=== PATIENT | female | born 1970 | race Caucasian/White ===

== ENCOUNTER 2025-03-03 16:15 | Emergency (ER) | payer BC, SELFPAY ==
--- OUTSIDE RECORDS SUMMARY | 2025-03-03 16:17 | XMS_ITS | Clinical Summary ---
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 90 capsule. 3 03/04/2021 Active Active Problems Problem Noted Date Diagnosed Date Seasonal affective disorder 03/04/2021 ASCUS of cervix with negative high risk HPV 08/2019 Overview (02/27/2020): 02/14/2020 ASCUS/HPV negative. PLAN: Repeat Pap/HPV testing in 3 years (DUE 02/2023) PHARYNGITIS, ACUTE 07/26/2002 BACK ACHE 07/26/2002 Immunizations Immunization Administration Dates Next Due COVID-19 vaccine (Moderna 100mcg/0.5mL) PF, MDV 08/20/2020,07/23/2020 Influenza, IIV4 03/04/2021,02/14/2020 Tdap 02/14/2020,02/10/2007 Zoster (Shingrix-RZV, recombinant) 10/03/2020, Family History Medical History Relation Name Comments Hypertrophic cardiomyopathy Daughter Cancer Maternal Grandmother bone ca Diabetes Maternal Grandmother Diabetes Mother Cancer Paternal Grandfather lung Cancer-breast No Family History Cancer-ovarian No Family History Relation Name Status Comments Daughter Other Maternal Grandmother Mother Paternal Grandfather Social History Tobacco Use Types Packs/Day Years Used Date Smoking Tobacco: Never Smokeless Tobacco: Never Tobacco Cessation:Counseling Given: Yes Alcohol Use Standard Drinks/Week Comments No 0 (1 standard drink = 0.6 oz pur e alcohol) PHQ-2 Answer Date Recorded PHQ-2 TOTAL SCORE 0 03/04/2021 Social Connections Answer Date Recorded Frequency of Communication with Friends and Fami ly Not on file 06/13/2021 Financial Resource Strain Answer Date R ecorded Difficulty of Paying Living Expenses Not on file 06/13/2021 Difficulty of Paying Living Expenses Not on file 06/13/2021 Comments No Sex and Gender Information Value Date Recorded Sex Assigned at Not on file 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 Gender Identity Not on file Sexual Orientation Not on file Obstetrics History Last Filed Vital Signs Vital Sign Reading Time Taken Comments Blood Pressure 110/60 11/11/2021 2:29 PM CDT Pulse 76 11/11/2021 2:29 PM CDT Temperature 36.7 C (98.1 F) 07/15/2004 9:38 AM HEALTH CARE MARKETING MANAGER Respiratory Rate - - Oxygen Saturation 97% 03/04/2021 2:08 PM CDT Inhaled Oxygen Concentration - - Weight 69.1 kg (152 lb 6.4 oz) 03/04/2021 2:08 P M CDT Height 152.6 cm (5' 0.08) 03/04/2021 2:08 PM CD T Body Mass Index 29.69 03/04/2021 2:08 PM CDT Plan of Treatment Health Maintenance Due Date Last Done Comments HIV for age 15-65 1984 Hepatitis C screening for age 18-79 11/29/1987 Hepatitis B series for 19+ ( 1 of 3 - 19+ 3-dose series) 1988 Pneumococcal series for age 50+ (1 of 1 - PCV) 11/29/2019 Mammogram for age 45-75 02/18/2022 02/18/2021, 02/10 BMI (ht and wt on same day) for age 18+ 03/04/2022 03/04/2021, 02/14/2020 Depression screening for age 12+ 03/04/2022 03/04/20 21, 02/14/2020 Pap test for age 21-65 02/13/2023 02/14/2020, 2019 COVID-19 vaccine series ( season) 2025 06/22/2021, 08/20/2020, 07/23/2020 Influenza Vaccine (#1) 2025 03/04/2021, 2019 Lipids for age 45-75 02/13/2025 02/14/2020 Tetanus booster 02/13/2030 02/14/2020, 02/10/2007 Colonoscopy through age 75 11/19/203011/19, 11/19/2020, 11/19/2020 RSV vaccine for adults or pr egnancy (1 - 1-dose 75+ series) 2044 Zoster (shingles) series for age 50+ Completed 09/12, 02/14/2020 Procedures Procedure Name Priority Date/Time Associated Diagnosis Comments XR MAMMO ARMIDA BILAT SCREEN Routine 02/18/2021 1:53 PM CDT Visit for screening mammogram COLONOSCOPY SCREENING Routine 11/19/2020 8:41 AM CDT Screening for colon cancer LIPID PANEL W REFLEX MEASURED LDL Routine 02/14/2020 2:42 PM CDT Screening for lipid disorders LOCKSMITH HELPER THIN PREP PAP SCREEN IMAGED Routine 02/14/2020 2:24 PM CDT Screening for cervical cancer from Last 3 Months or Most Recently Relevant to Health Maintenance Results * XR MAMMO ARMIDA BILAT SCREEN (02/18/2021 1:53 PM CDT) Anatomical Region Laterality Modality BREASTS, Breast Left, Breast Right Bilateral Mammography Impressions 02/20/2021 3:42 PM CDT There is no radiographic evidence for malignancy. Recommend annual mammograms. MAMMOGRAM ASSESSMENT: ACR 1 Negative PATIENTS: You will also receive a letter with your examination results in an easy to read format. If you have questions about your results, please contact your referring provider. Narrative 02/20/2021 3:42 PM CDT For Patients: As a result of the Cures Act, medical imaging exams and procedure reports are released immediately into your electronic medical record. You may view this report before your referring provider. If you have questions, please contact your health care provider. XR MAMMO ARMIDA BILAT SCREEN [[id number]] CLINICAL HISTORY: This is an asymptomatic 50 y.o. patient. INDICATION FOR EXAM: Mammogram Screening. TECHNIQUE: CC & MLO views were obtained. This study was evaluated with the assistance of Computer-Aided Detection. Breast Tomosynthesis was used in interpretation. COMPARISON FILM: Yes 02/11/20 [facility] FINDINGS: The breasts have scattered areas of fibroglandular density. There are no dominant masses, suspicious micro calcifications or areas of architectural distortion. us Cindy Jorge MD MAMMO Final Result * COLONOSCOPY (11/19/2020 8:37 AM CDT) 11/19/2020 8:37 AM CDT Narrative Transcriptions Moises Mitchell MD - 11/19/2020 9:39 AM CDT Patient Name: Dorys Jo Procedure Date: 11/19/2020 Gender: Female Date of : 1970 Admit Type: Outpatient Procedure: Colonoscopy Proceduralist: Moises Mitchell MD , Doris Flores RN(Nurse) Referring MD: Cindy Jorge Indications/Pre-Op Diagnosis: Screening for colorectal malignant neoplasm, This is the patient's first colonoscopy Medications: Fentanyl 100 micrograms IV, Midazolam 4 mgIV, The level of sedation administered wasmoderate Procedure Description: The patient had risks, benefits and alternatives explained to andgave informed consent. The patient had a stable cardiopulmonary status and judged an adequate candidate for conscious sedation. The [id number]-[id number] was passed through the anus and advanced tothe cecum, identified by appendiceal orifice and ileocecal valve. The colonoscopy was performed without difficulty. The patient toleratedthe procedure well. The quality of the bowel preparation was good. The ileocecal valve, appendiceal orifice, and rectum were photographed. Complications: No immediate complications. Estimated Blood Loss & Specimen: Estimated blood loss: none. Specimen collected - Yes and sent to Laboratory Findings: The perianal and digital rectal examinations were normal. A 2 mm polyp was found in the descending colon. The polyp wassessile. The polyp was removed with a cold biopsy forceps. Resection and retrieval were complete. The exam was otherwise without abnormality on direct and retroflexion views. Impressions/Post-Op Diagnosis: - One 2 mm polyp in the descending colon, removed with a cold biopsy forceps. Resected and retrieved. - The examination was otherwise normal on direct and retroflexionviews. Recommendation: - Patient has a contact number available for emergencies. The signsand symptoms of potential delayed complications were discussed with the patient. Return to normal activities tomorrow. Written discharge instructions were provided to the patient. - Resume previous diet. - Continue present medications. - Await pathology results. - Repeat colonoscopy is recommended. The colonoscopy date will be determined after pathology results from today's exam become available for review. Moderate Sedation: Moderate (conscious) sedation was administered by the endoscopy nurse and supervised by the endoscopist. The following parameters were monitored: oxygen saturation, heart rate, respiratory rate, blood pressure, adequacy of pulmonary ventilation and reponse to care. Please refer to the patient's medical record flowsheets and nursing notes for moderate sedation details. Total physician intraservice time was 24 minutes. Moises Mitchell MD 11/19/2020 9:39:22 AM This report has been signed electronically. Note Initiated On: 11/19/2020 8:37 AM Procedure Code(s): --- Professional --- 64733, Colonoscopy, flexible; with biopsy, single or multiple Diagnosis Code(s): --- Professional --- Z12.11, Encounter for screening formalignant neoplasm of colon K63.5, Polyp of colon CPT copyright 2020 [employer]. All rights reserved. The codes documented in this report are preliminary and upon canal boat operator reviewmay be revised to meet current compliance requirements. Scope In: 9:13:51 AM Scope Withdrawal Time 0 hours 8 minutes 2 seconds Scope Out: 9:36:11 AM us Moises Mitchell MD PROCEDURE ORD Final Res ult * LIPID PANEL W REFLEX MEASURED LDL [[id number]] (02/14/2020 2:42 PM CDT) CHOLESTEROL,TOTAL 183 100 - 199 mg/dL 02/14/2020 8:47 PM CDT [facility] TRIGLYCERIDES 124 <150 mg/dL 02/14/2020 8:47 PM CDT [facility] HDL CHOLESTEROL 47 >40 mg/dL 0 8:47 PM CDT [facility] NON-HDL CHOLESTEROL 136 <145 mg/dl 02/14/2020 8:47 PM CDT [facility] CHOL/HDL RATIO 3.89 <4.50 02/14/2020 8:47 PM CDT [facility] LDL CHOLESTEROL 111 <=130 mg/dL 02/14/2020 8:47 PM CDT [facility] PROVIDER ORDERED STATUS RANDOM 02/14/2020 8:47 PM CDT [facility] Blood BLOOD SPECIMEN / Unknown Venipuncture / Unknown 02/14/2020 2:42 PM CDT 02/14/2020 2:42 PM CDT us Cindy Jorge MD CHEMISTRY Final Result [facility] [address] [place] [address], [place] * (ABNORMAL) LOCKSMITH HELPER THIN PREP PAP SCREEN IMAGED [[id number]] (02/14/2020 2:24 PM CDT) Case Report Gynecologic Cytology Report Case: [id number] Authorizing Provider: Cindy Jorge MD Collected: 02/14/2020 1424 Ordering Location: [facility] Received: 02/14/2020 1550 Clinic First Screen: Bailee Frank Pathologist: Kathleen Wilkes MD Specimen: LOCKSMITH HELPER ThinPrep Vial Screening, Cervical 02/27/2020 9:04 AM CDT [facility] INTERPRETATION/ RESULT ATYPICAL SQUAMOUS CELLS OF UNDETERMINED SIGNIFICANCE (ASCUS)(A) (none) 02/27/2020 9:04 AM CDT [facility] at 0904 CDT SPECIMEN ADEQUACY Satisfactory for evaluation Endocervical component present 02/27/2020 9:04 AM CDT [facility] HPV REQUEST HPV and PAP 02/27/2020 9:04 AM CDT [facility] Date of LMP 01/15/20 02/27/2020 9:04 AM CDT [facility] Last Pap Date unknown 02/27/2020 9:04 AM CDT [facility] Last Pap Result NIL 0 9:04 AM CDT [facility] Abnormal Pap or [place] Bx in last 5 years No 02/27/2020 9:04 AM CDT [facility] Menstrual Status Regular Periods 02/27/2020 9:04 AM CDT [email or web address] [place] Bx Done Today No 02/27/2020 9:04 AM CDT [email or web address] Additional Information None given 02/27/2020 9:04 AM CDT [facility] Comment: Cytology is screened at [facility] - [address], [place] [address] and [facility] - [address] [place] [address] [place] [address] and [facility] - [address] [place] [address] Interpreted at [facility], [facility] - [address], [place] [address] Automated Review Successful 02/27/2020 9:04 AM CDT [facility] Comment:Specimen processed s uccessfully by automated affiliate marketing coordinator device, ThinPrep Imaging System, [employer] ANCILLARY TESTING LOCKSMITH HELPER HPV Ordered, Please see separate report 02/27/2020 9:04 AM CDT [facility] Note The pap test is a screening technique, not a diagnostic procedure. It is used primarily to screen for squamous cancers and precursor lesions. Published studies have shown that it is subject to both false negative and false positive results. The pap test should not be used as the sole means to diagnose or exclude pre-malignant and malignant lesions. 02/27/2020 9:04 AM CDT [facility] Other (Cervical) Non-Blood / Unknown 02/14/2020 2:24 PM CDT 02/14/2020 3:50 PM CDT us Cindy Jorge MD PATHOLOGY/CYTOLOGY Final Resu lt [facility] [address] [place] [address], [place] from Last 3 Months or Most Recently Relevant to Health Maintenance Insurance [facility] Care Teams Plastering Supervisor Relationship Specialty Start Date End Date Pcp, No . PCP - General 12/23/22
[2025-03-03 16:28] VITALS: BP 148/83; PULSE 74; RESP 20; TEMP 36.6; O2SAT 98; BMI 29.7
--- NOTE | 2025-03-03 17:03 | ED.WOUNDLAC ---
HPI - Wound/Laceration General Date Seen: 03/03/25 Chief Complaint: Laceration/Wound Stated Complaint: R middle LAC- head of mathematics Time Seen by Provider: 03/03/25 16:30 Source: patient Mode of arrival: ambulatory Limitations: no limitations History of Present Illness HPI narrative: Patient is a 54-year-old female presenting for laceration to her right middle finger. She states she was mowing the lawn when she turned off and tried to look at the blade. The blade was still moving and cut her finger. She was able to control the bleeding at home. Denies any other injuries. Unsure when her last tetanus was. No other concerns noted. Related Data Home Medications ?Medication ?Instructions ?Recorded ?Confirmed sertraline 25 mg tablet 25 mg PO DAILY 03/03/25 03/03/25 Allergies Allergy/AdvReac Type Severity Reaction Status Date / Time No Known Drug Allergies Allergy Verified 03/03/25 16:26 Review of Systems Narrative: Pertinent systems reviewed and were negative unless stated in HPI Exam Narrative: Exam Narrative: Const: Well-nourished, Well-developed, in mild distress Eyes: PERRL, no conjunctival injection, and symmetrical lids HENT: Atraumatic external nose and ears. Moist mucous membranes. MSK:Extremities w/o deformity, Normal Active ROM Skin: Warm, Dry. Laceration to her right middle finger starting at the base of the ulnar aspect of the nail bed and wrapping around to the volar aspect of the finger. About 2 cm total in length. Neuro: Normal Muscle tone, No focal neurological deficits. Psych: Awake, Alert, & Oriented x3. Appropriate mood and affect. Const: Vital Signs, click to edit/add: Vital Signs - 24 hr 03/03/25 16:28 Temperature 97.9 F Pulse Rate [Pulse Oximeter] 74 Respiratory Rate 20 Blood Pressure [Ri ght Upper Arm] 148/83 H Pulse Oximetry 98 Oxygen Delivery Me thod Room Air Course Vital Signs Vital signs: Initial Vital Signs Temperature 97.9 F 03/03/25 16:28 Temperature Source Temporal Artery Scan 03/03/25 16:28 Pulse Rate 74 03/03/25 16:28 Respiratory Rate 20 03/03/25 16:28 Blood Pressure 148/83 H 03/03/25 16:28 Blood Pressure Mean 104 03/03/25 16:28 Pulse Oximetry 98 03/03/25 16:28 Oxygen Delivery Method Room Air 03/03/25 16:28 Vital Signs Temperature 97.9 F 03/03/25 16:28 Pulse Rate 74 03/03/25 16:28 Respiratory Rate 20 03/03/25 16:28 Blood Pressure 148/83 H 03/03/25 16:28 Pulse Oximetry 98 03/03/25 16:28 Oxygen Delivery Method Room Air 03/03/25 16:28 Temperature 97.9 F 03/03/25 16:28 Pulse Rate 74 03/03/25 16:28 Respiratory Rate 20 03/03/25 16:28 Blood Pressure 148/83 H 03/03/25 16:28 Pulse Oximetry 98 03/03/25 16:28 Oxygen Delivery Method Room Air 03/03/25 16:28 MDM - Wound/Laceration MDM Narrative Medical decision making narrative: Patient is a 54-year-old female presenting for laceration to her right hand. Do not believe imaging is necessary. Laceration repair was performed. She tolerated the procedure well. Last tetanus was 5 years ago I do believe she does not need a new 1. I do not believe antibiotics are indicated at this time. She is safe for discharge and agrees with this plan. Discharge Plan Discharge Clinical Impression: Laceration Patient Disposition: Home, Self-Care Condition: Stable Instructions: Finger Laceration (ED) Additional Instructions: Follow-up with your primary care provider or urgent care in the next 7 days to have the 5 sutures removed. For next 6 months, once sutures are removed, whenever you go outside put a dab of sunscreen over the laceration site to improve scar appearance. Topical antibiotics are not necessary at this time. Patient can shower but do not submerge the laceration until sutures are removed. Elective see redness tomorrow with the redness starts to increase after that I do recommend repeat evaluation. Hands can get infected fast and bad but antibiotics were not indicated at this time. Prescriptions: No Action sertraline 25 mg tablet 25 mg PO DAILY Follow Up/Referrals: Provider,Not a Local [Primary Care Provider, Family Practice] Stand Alone Forms: MyHealth Info Instructions Procedures Laceration Right middle finger: Name of person performing procedure: Mat Newell Site: hand Side (If applicable): right Size (cm): 2 Description: linear and clean Depth: simple, single layer Local Anesthetic: lidocaine 1% Amount of anesthesia used (mL): 4 Pre-repair: wound explored, irrigated extensively and deep structures intact Skin layer closed with: nylon Size (cm): 5-0 Number of sutures: 5 Technique: simple, interrupted Conclusion: patient tolerated procedure
== END 2025-03-03 17:52 | disposition home or self-care (01) ==
PROVIDERS: Emergency Provider Student in an Organized Health Care Education/Training Program
DX: S61.212A Laceration without foreign body of right middle finger without damage to nail, initial encounter (principal); W26.9XXA Contact with unspecified sharp object(s), initial encounter; Y93.H2 Activity, gardening and landscaping
CPT/HCPCS: 12001; 99283